=== PATIENT | female | born 1995 | race Caucasian/White ===

== ENCOUNTER → 2022-07-15 15:28 | Outpatient (CLI) | payer BC, SELFPAY ==
--- NOTE | 2022-07-15 15:30 | DI.US.S_ITS ---
PROCEDURE: US OB <= 14 WEEKS FETUS INDICATIONS: DATES OUTSIDE/PRIOR DATING DATA: Last menstrual period (LMP): Unknown. LMP-based estimated date of delivery (REJI): Not applicable First dating scan (date and location): 07/15/2022. Estimated date of delivery (REJI) from first dating scan: 02/28/2023. TECHNIQUE: Real-time scanning was performed of the fetus and maternal pelvic organs, with image documentation. Endovaginal scanning was also performed to better visualize the fetus and maternal ovaries. COMPARISON: None. FINDINGS: A single living intrauterine gestation is present, with a heart rate of 153 beats per minute. [place]-rump length is 13 mm, corresponding to a 7 week 3 day gestation. Maternal organs: Right ovary is not seen. Left ovary measures 23 mm and demonstrates a corpus luteal cyst. IMPRESSION: Single living intrauterine gestation. We strive to produce accurate, complete, and clear reports of imaging services. To assist us in improving patient care, this report was composed using standard report templates and voice recognition software. Therefore, it may contain abnormal punctuation, insertions and/or omissions. Occasional wrong-word or sound-alike substitutions may occur. Though we review the report and make efforts to correct it, we do recommend that the report be read carefully in proper context to recognize any text inaccuracies. Dictated by: Marylin Tate M.D. on 07/15/2022 at 16:45 Transcribed by: JOSHUA on 07/15/2022 at 16:46 Approved by: Marylin Tate M.D. on 07/15/2022 at 16:58
== END ==
PROVIDERS: Referring Provider Obstetrics & Gynecology; Visit Provider Obstetrics & Gynecology
DX: Z36.87 Encounter for antenatal screening for uncertain dates (principal); Z3A.01 Less than 8 weeks gestation of pregnancy
CPT/HCPCS: 76801; 76817

== ENCOUNTER → 2022-08-19 15:35 | Outpatient (CLI) | payer BC, SELFPAY ==
[2022-08-19 16:23] LABS: Add Manual Diff / Slide Review NO; Basophils Absolute Auto 100 /uL (0-100); Basophils Percent Auto 0.6 % (0-2); Eosinophils Absolute Auto 100 /uL (0-450); Eosinophils Percent Auto 0.7 % (2-4); Hematocrit 35.4 % (36-46); Hemoglobin 12.3 g/dL (12.0-16.0); Lymphocytes Absolute Auto 2000 /uL (1100-4500); Lymphocytes Percent Auto 19.1 % (25-40); Mean Corpuscular HGB Conc 34.9 % (30-36); Mean Corpuscular Volume 88.9 fL (80-100); Monocytes Absolute Auto 600 /uL (0-900); Monocytes Percent Auto 5.6 % (3-14); Neutrophils Absolute Auto 7600 /uL (1500-7000); Platelet Count 240 X10^3/uL (150-400); Red Blood Cell Count 3.98 X10^6/uL (4.0-5.2); Red Cell Distribution Width 12.6 % (11.6-14.8); White Blood Cell Count 10.3 X10^3/uL (4.5-11.0)
[2022-08-19 16:58] LABS: Alanine Aminotransferase 17 IU/L (<35); Albumin 4.3 g/dL (3.5-5.0); Albumin Globulin Ratio 1.3 (1.0-2.8); Alkaline Phosphatase 63 U/L (38-126); Aspartate Aminotransferase 21 IU/L (14-36); BUN Creatinine Ratio 16.2 (6-22); Bilirubin Total 0.2 mg/dL (0.2-1.3); Blood Urea Nitrogen 11 mg/dL (7-17); Calcium 9.7 mg/dL (8.4-10.2); Carbon Dioxide 23 mmol/L (22-32); Chloride 99 mmol/L (98-107); Estimated Glomerular Filt Rate > 60 mL/min (>60); Globulin 3.2 g/dL (1.7-4.1); Glucose 87 mg/dL (70-100); HEMOLYSIS < 15 (0-50); Sodium 134 mmol/L (137-145); Total Protein 7.5 g/dL (6.3-8.2)
[2022-08-19 17:58] LABS: Hepatitis B Surface Antigen NEGATIVE s/c (NEGATIVE)
[2022-08-19 18:07] LABS: HIV 1 & 2 Ab/Ag 4th Gen Combo NEGATIVE (NEGATIVE); Hep C Virus Ab w/Reflex Quant NEGATIVE s/c (NEGATIVE)
[2022-08-20 08:36] LABS: Varicella IgG Antibody 1595 index (Immune >165)
[2022-08-21 07:19] LABS: RPR Screen Non Reactive (Non Reactive)
[2022-08-22 14:13] LABS: Levetiracetam Keppra 7.8 ug/mL (10.0-40.0)
== END ==
PROVIDERS: Referring Provider Obstetrics & Gynecology; Visit Provider Obstetrics & Gynecology
DX: Z34.00 Encounter for supervision of normal first pregnancy, unspecified trimester (principal); G40.309 Generalized idiopathic epilepsy and epileptic syndromes, not intractable, without status epilepticus
CPT/HCPCS: 36415; 80053; 80055; 80177; 86787; 86803; 86850; 86900; 86901; 87389

== ENCOUNTER → 2022-09-17 15:02 | Outpatient (CLI) | payer BC, SELFPAY ==
[2022-09-17 19:01] LABS: Urine N gonorrhoeae NOT DETECTED
[2022-09-17 19:02] LABS: Urine Chlamydia NOT DETECTED
== END ==
PROVIDERS: Visit Provider Obstetrics & Gynecology
DX: Z11.3 Encounter for screening for infections with a predominantly sexual mode of transmission (principal); Z34.02 Encounter for supervision of normal first pregnancy, second trimester; Z3A.16 16 weeks gestation of pregnancy
CPT/HCPCS: 87086; 87491; 87591

== ENCOUNTER → 2022-09-17 15:47 | Outpatient (CLI) | payer BC, SELFPAY ==
[2022-09-19 19:07] LABS: Estriol, Free 0.96 ng/mL (.); Inhibin A, Dimeric 364.98 pg/mL (.); Inhibin A, MoM 2.47 (.); Maternal Ethnicity Caucasian (.); Maternal Weight 157 lbs (.); Number of Fetuses No (.); OSBR Risk 1 IN 8371 (.); Results Report (.); Test Results *Screen Negative* (.); hCG, MoM 2.98 (.); hCG, Serum 105318 mIU/mL (.)
[2022-09-20 08:44] LABS: Levetiracetam Keppra 7.3 ug/mL (10.0-40.0)
== END ==
PROVIDERS: Psychiatry & Neurology Neurology; Referring Provider Obstetrics & Gynecology; Visit Provider Obstetrics & Gynecology
DX: G40.409 Other generalized epilepsy and epileptic syndromes, not intractable, without status epilepticus; Z11.3 Encounter for screening for infections with a predominantly sexual mode of transmission; Z3A.16 16 weeks gestation of pregnancy; O99.352 Diseases of the nervous system complicating pregnancy, second trimester
CPT/HCPCS: 36415; 80177; 82105; 82677; 84702; 86336; 87086; 87491; 87591

== ENCOUNTER → 2022-10-13 15:11 | Outpatient (CLI) | payer BC, SELFPAY ==
--- NOTE | 2022-10-13 15:11 | DI.US.S_ITS ---
PROCEDURE: US OB >= 14 WEEKS FETUS INDICATIONS: ANATOMY OUTSIDE/PRIOR DATING DATA: Last menstrual period (LMP): Unknown. First dating scan (date and location): 07/15/2022. Estimated date of delivery (REJI) from first dating scan: 02/28/2023. TECHNIQUE: Real-time scanning was performed of the fetus, with image documentation and biometric measurements. Endovaginal scanning: Not performed COMPARISON: [facility], OB <= 14 WEEKS FETUS, 07/15/2022, 15:39. FINDINGS: General: A single living intrauterine gestation is present. Presentation: Vertex. Placenta: Placental position is anterior , without previa. Amniotic fluid index: 13.6 cm, normal range is 5-24 cm. Single deepest vertical pocket is 3.6 cm. heart rate: 155 beats per minute. Maternal cervical canal: 3.4 cm long. Normal lower limit is 2.5 cm. biometrics: Biparietal diameter: 4.9 cm, 20 weeks 6 days Head circumference: 18.1 cm, 20 weeks 3 days Abdominal circumference: 15.2 cm, 20 weeks 3 days Femur length: 3.3 cm, 20 weeks 2 days estimated gestational age: 20 weeks 2 days Composite gestational age from present scan: 20 weeks 4 days Estimated weight and percentile: 350 g, 51st percentile Anatomic survey: Neuro: Ventricles are non-dilated at less than 10 mm. Cisterna magna is normal at 3-11 mm. Cerebellum is normal in size and morphology. Nuchal skin fold: Normal at less than 6 mm between 14-21 weeks gestational age. Face: Nose and lips, facial profile are normal. Spine: No evidence for spina bifida. Heart: 4-chambered heart is present, with normal ventricular outflow tracts. Diaphragm: Diaphragm is intact. Stomach: Left-sided stomach is present. Kidneys: No hydronephrosis. Normal is less than 5 mm in 2nd trimester, less than 7 mm in 3rd trimester. Cord: 3-vessel cord has orthotopic insertion. Bladder: Normal in size. Extremities: All 4 extremities identified. IMPRESSION: 1. Single living intrauterine . 2. Normal 2nd trimester anatomy survey. No anatomic anomalies detected at this time. We strive to produce accurate, complete, and clear reports of imaging services. To assist us in improving patient care, this report was composed using standard report templates and voice recognition software. Therefore, it may contain abnormal punctuation, insertions and/or omissions. Occasional wrong-word or sound-alike substitutions may occur. Though we review the report and make efforts to correct it, we do recommend that the report be read carefully in proper context to recognize any text inaccuracies. Dictated by: Ash Quiroz M.D. on 10/14/2022 at 8:34 Approved by: Ash Quiroz M.D. on 10/14/2022 at 8:44
== END ==
PROVIDERS: Referring Provider Obstetrics & Gynecology; Visit Provider Obstetrics & Gynecology
DX: Z34.02 Encounter for supervision of normal first pregnancy, second trimester (principal); Z3A.20 20 weeks gestation of pregnancy
CPT/HCPCS: 76811

== ENCOUNTER → 2022-11-12 14:10 | Outpatient (CLI) | payer BC, SELFPAY ==
[2022-11-15 11:21] LABS: Levetiracetam Keppra 7.1 ug/mL (10.0-40.0)
== END ==
PROVIDERS: Referring Provider Psychiatry & Neurology Neurology; Visit Provider Psychiatry & Neurology Neurology
DX: G40.309 Generalized idiopathic epilepsy and epileptic syndromes, not intractable, without status epilepticus (principal)
CPT/HCPCS: 36415; 80177

== ENCOUNTER → 2022-11-26 13:51 | Outpatient (CLI) | payer BC, SELFPAY ==
[2022-11-26 15:50] LABS: Hematocrit 30.7 % (36-46); Hemoglobin 10.4 g/dL (12.0-16.0)
[2022-11-26 16:06] LABS: GTT (PREG) 1 Hour PP 50gm Dose 142 mg/dL (76-139)
== END ==
PROVIDERS: Referring Provider Obstetrics & Gynecology; Visit Provider Obstetrics & Gynecology
DX: Z34.82 Encounter for supervision of other normal pregnancy, second trimester (principal); Z3A.20 20 weeks gestation of pregnancy
CPT/HCPCS: 36415; 82950; 85014; 85018

== ENCOUNTER → 2022-11-28 07:51 | Outpatient (CLI) | payer BC, SELFPAY ==
[2022-11-28 08:36] LABS: Glucose Fasting Gestational 76 mg/dL (76-95)
[2022-11-28 10:12] LABS: Glucose 1 Hour Gest 145 mg/dL (76-180)
[2022-11-28 11:00] LABS: Glucose 2 Hour Gest 103 mg/dL (76-155)
[2022-11-28 11:22] LABS: Glucose Tol Interp,Gestational INTERPRETATION
[2022-11-28 13:03] LABS: Glucose 3 Hour Gest 102 mg/dL (76-140)
== END ==
PROVIDERS: Referring Provider Obstetrics & Gynecology; Visit Provider Obstetrics & Gynecology
DX: R73.09 Other abnormal glucose (principal); Z3A.24 24 weeks gestation of pregnancy
CPT/HCPCS: 36415; 82951; 82952

== ENCOUNTER → 2023-01-08 08:45 | Outpatient (CLI) | payer BC, SELFPAY ==
[2023-01-12 13:41] LABS: Levetiracetam Keppra 20.9 ug/mL (10.0-40.0)
== END ==
PROVIDERS: Referring Provider Psychiatry & Neurology Neurology; Visit Provider Psychiatry & Neurology Neurology
DX: G40.309 Generalized idiopathic epilepsy and epileptic syndromes, not intractable, without status epilepticus (principal)
CPT/HCPCS: 36415; 80177

== ENCOUNTER → 2023-02-04 08:47 | Outpatient (CLI) | payer BC, SELFPAY ==
[2023-02-05 13:28] LABS: Strep Grp B PCR NEG for Grp B Strep
== END ==
PROVIDERS: Visit Provider Obstetrics & Gynecology
DX: Z34.03 Encounter for supervision of normal first pregnancy, third trimester (principal); Z3A.36 36 weeks gestation of pregnancy
CPT/HCPCS: 87653

== ENCOUNTER → 2023-02-11 08:54 | Outpatient (CLI) | payer BC, SELFPAY ==
[2023-02-11 09:20] LABS: Add Manual Diff / Slide Review NO; Basophils Absolute Auto 100 /uL (0-100); Basophils Percent Auto 0.7 % (0-2); Eosinophils Absolute Auto 100 /uL (0-450); Eosinophils Percent Auto 0.6 % (2-4); Hematocrit 34.7 % (36-46); Lymphocytes Absolute Auto 1400 /uL (1100-4500); Lymphocytes Percent Auto 13.6 % (25-40); Mean Corpuscular HGB Conc 34.6 % (30-36); Mean Corpuscular Hemoglobin 31.4 PG (26-34); Mean Corpuscular Volume 90.6 fL (80-100); Monocytes Absolute Auto 600 /uL (0-900); Monocytes Percent Auto 5.6 % (3-14); Neutrophils Absolute Auto 8300 /uL (1500-7000); Neutrophils Percent Auto 79.5 % (50-75); Platelet Count 184 X10^3/uL (150-400); Red Blood Cell Count 3.83 X10^6/uL (4.0-5.2); Red Cell Distribution Width 13.6 % (11.6-14.8); White Blood Cell Count 10.5 X10^3/uL (4.5-11.0)
[2023-02-11 09:36] LABS: Alanine Aminotransferase 25 IU/L (<35); Albumin 3.3 g/dL (3.5-5.0); Albumin Globulin Ratio 1.1 (1.0-2.8); Alkaline Phosphatase 941 U/L (38-126); Aspartate Aminotransferase 30 IU/L (14-36); BUN Creatinine Ratio 12.5 (6-22); Bilirubin Total 0.2 mg/dL (0.2-1.3); Blood Urea Nitrogen 8 mg/dL (7-17); Calcium 9.5 mg/dL (8.4-10.2); Carbon Dioxide 26 mmol/L (22-32); Chloride 103 mmol/L (98-107); Estimated Glomerular Filt Rate > 60 mL/min (>60); Globulin 3.1 g/dL (1.7-4.1); Glucose 85 mg/dL (70-100); HEMOLYSIS < 15 (0-50); Sodium 134 mmol/L (137-145); Total Protein 6.4 g/dL (6.3-8.2)
== END ==
PROVIDERS: Referring Provider Obstetrics & Gynecology; Visit Provider Obstetrics & Gynecology
DX: O16.3 Unspecified maternal hypertension, third trimester (principal); Z3A.37 37 weeks gestation of pregnancy
CPT/HCPCS: 36415; 80053; 82570; 84156; 85025

== ENCOUNTER → 2023-02-11 08:54 | Outpatient (CLI) | payer BC, SELFPAY ==
[2023-02-11 15:02] LABS: Creatinine Urine Random 21.8 mg/dL; Protein (Total) Urine Random 13 mg/dL (0-12); Protein Creatinine Ratio Urine 0.59 GRAM/24H
== END ==
PROVIDERS: Visit Provider Obstetrics & Gynecology
DX: Z34.03 Encounter for supervision of normal first pregnancy, third trimester (principal); Z3A.37 37 weeks gestation of pregnancy
CPT/HCPCS: 82570; 84156

== ENCOUNTER → 2023-02-16 07:11 | Outpatient (CLI) | payer BC, SELFPAY ==
[2023-02-16 07:46] LABS: Add Manual Diff / Slide Review NO; Basophils Absolute Auto 0 /uL (0-100); Basophils Percent Auto 0.4 % (0-2); Eosinophils Absolute Auto 100 /uL (0-450); Eosinophils Percent Auto 0.7 % (2-4); Hemoglobin 12.5 g/dL (12.0-16.0); Lymphocytes Absolute Auto 1500 /uL (1100-4500); Mean Corpuscular HGB Conc 33.8 % (30-36); Mean Corpuscular Hemoglobin 31.2 PG (26-34); Mean Corpuscular Volume 92.5 fL (80-100); Monocytes Absolute Auto 500 /uL (0-900); Monocytes Percent Auto 4.2 % (3-14); Neutrophils Absolute Auto 8700 /uL (1500-7000); Neutrophils Percent Auto 80.7 % (50-75); Platelet Count 188 X10^3/uL (150-400); Red Cell Distribution Width 13.9 % (11.6-14.8); White Blood Cell Count 10.8 X10^3/uL (4.5-11.0)
[2023-02-16 08:17] LABS: Alanine Aminotransferase 23 IU/L (<35); Albumin 3.3 g/dL (3.5-5.0); Albumin Globulin Ratio 1.2 (1.0-2.8); Alkaline Phosphatase 1065 U/L (38-126); Aspartate Aminotransferase 30 IU/L (14-36); BUN Creatinine Ratio 13.6 (6-22); Bilirubin Total 0.2 mg/dL (0.2-1.3); Blood Urea Nitrogen 9 mg/dL (7-17); Calcium 9.3 mg/dL (8.4-10.2); Carbon Dioxide 22 mmol/L (22-32); Chloride 103 mmol/L (98-107); Estimated Glomerular Filt Rate > 60 mL/min (>60); Globulin 2.8 g/dL (1.7-4.1); Glucose 141 mg/dL (70-100); HEMOLYSIS < 15 (0-50); Potassium 3.8 mmol/L (3.4-5.1); Sodium 133 mmol/L (137-145); Total Protein 6.1 g/dL (6.3-8.2)
[2023-02-16 08:29] LABS: Creatinine Urine Random 16.7 mg/dL; Protein (Total) Urine Random 14 mg/dL (0-12); Protein Creatinine Ratio Urine 0.83 GRAM/24H
== END ==
PROVIDERS: Referring Provider Obstetrics & Gynecology; Visit Provider Obstetrics & Gynecology
DX: O16.3 Unspecified maternal hypertension, third trimester (principal)
CPT/HCPCS: 36415; 80053; 82570; 84156; 85025

== ENCOUNTER 2023-02-24 16:04 | Inpatient (IN) | payer BC, SELFPAY ==
[2023-02-24 16:52] VITALS: BP 139/90
[2023-02-24 17:48] LABS: Add Manual Diff / Slide Review NO; Basophils Absolute Auto 100 /uL (0-100); Basophils Percent Auto 0.5 % (0-2); Eosinophils Absolute Auto 100 /uL (0-450); Eosinophils Percent Auto 0.7 % (2-4); Hematocrit 37.3 % (36-46); Hemoglobin 12.7 g/dL (12.0-16.0); Lymphocytes Absolute Auto 1800 /uL (1100-4500); Lymphocytes Percent Auto 14.1 % (25-40); Mean Corpuscular Hemoglobin 30.7 PG (26-34); Mean Corpuscular Volume 90.3 fL (80-100); Monocytes Absolute Auto 700 /uL (0-900); Monocytes Percent Auto 5.2 % (3-14); Neutrophils Absolute Auto 10300 /uL (1500-7000); Neutrophils Percent Auto 79.5 % (50-75); Platelet Count 201 X10^3/uL (150-400); Red Blood Cell Count 4.13 X10^6/uL (4.0-5.2); Red Cell Distribution Width 13.6 % (11.6-14.8)
[2023-02-24 18:46] LABS: Add Manual Diff / Slide Review NO; Basophils Absolute Auto 100 /uL (0-100); Basophils Percent Auto 0.6 % (0-2); Eosinophils Absolute Auto 100 /uL (0-450); Eosinophils Percent Auto 0.8 % (2-4); Hematocrit 39.3 % (36-46); Hemoglobin 13.4 g/dL (12.0-16.0); Lymphocytes Absolute Auto 1900 /uL (1100-4500); Lymphocytes Percent Auto 14.4 % (25-40); Mean Corpuscular HGB Conc 34.2 % (30-36); Mean Corpuscular Hemoglobin 30.8 PG (26-34); Mean Corpuscular Volume 90.3 fL (80-100); Monocytes Absolute Auto 600 /uL (0-900); Monocytes Percent Auto 4.4 % (3-14); Neutrophils Absolute Auto 10700 /uL (1500-7000); Neutrophils Percent Auto 79.8 % (50-75); Platelet Count 202 X10^3/uL (150-400); Red Blood Cell Count 4.35 X10^6/uL (4.0-5.2); Red Cell Distribution Width 13.7 % (11.6-14.8); White Blood Cell Count 13.4 X10^3/uL (4.5-11.0)
[2023-02-24 18:51] LABS: Aspartate Aminotransferase 44 IU/L (14-36); BUN Creatinine Ratio 13.8 (6-22); Blood Urea Nitrogen 8 mg/dL (7-17); Estimated Glomerular Filt Rate > 60 mL/min (>60); Uric Acid 5.5 mg/dL (2.5-6.2)
--- NOTE | 2023-02-24 19:54 | PM.OBHP.1 ---
OB HPI Date/Time Date of admission: 02/24/23 Date Patient Seen: 02/24/23 Time Patient Seen: 19:55 History of Present Condition Chief complaint: OBS OF LABOR : 1 Para: 0 Estimated Date of Delivery: 02/28/23 Estimated Gestational Age (weeks): 39.3 Narrative: Carmelo Blackwood is a 27 year old female at 39 weeks 3 days by early ultrasound. She is here after confirmation of PROM; reports fluid began leaking approx 1400. Carmelo has a history of seizure disorder, currently well controlled on Keppra 750 mg BID with 1000 mg folic acid BID; has not had a seizure in over 8 years. She also has a history of orthostatic hypotension. She is here with her , Alber. They are excited to meet their baby, Kapil. After reviewing options, Carmelo prefers expectant management of labor and declines a cervical exam at this time. Carmelo feels good today and denies headache, visual changes, epigastric pain. History of Present care: good care, initiated at week # (12), number of visits (10) and pounds weight gain (36) Dating criteria: based on 1st trimester US only Ultrasounds: normal 1st trimester US and normal mid trimester US [facility] Medical History (Updated 02/18/23 @ 10:01 by Frank Stinson MD) Chicken pox (~1996) Hemorrhoid (~2019) Hypotension Surgical History (Updated 09/16/22 @ 21:14 by Blanka Keen) Anesthesia [place] teeth extracted (~01/2014) Family History (Updated 09/16/22 @ 21:15 by Blanka Keen) Mother Skin cancer Father Hyperlipidemia Family/Other Skin cancer Grandmother Lung cancer Social History marital status: number of children: 0 household members: spouse lives independently: Yes caregiver/support person: No housing: condominium pets and animals: Yes (1 cat & 1 dog; aware of toxo precautions) education level: college (june's degree) occupational status: employed ([employer]) current occupational exposures/hazards: No special kaleb needs: No travel history: recent (domestic move only) seatbelt use: always water heater temp set < 120 deg: Yes working smoke detector in home: Yes fire extinguisher in home: Yes carbon monox detector in home: Yes firearms in home: Yes firearms unloaded and locked: No do you feel safe at home: Yes Smoking Status: Never smoker second hand exposure: No alcohol intake: former (rarely when not ) substance use type: does not use during the past year weight has: remained stable well-balanced diet: daily or most days daily servings fruits/ve-4 caffeine: No Type(s) of exercise: walking Meds Home Medications and Allergies Home Medications Medication Instructions Recorded Confirmed Type [id number] 400 mcg-om3 35 mg-dha 25 1 tab PO DAILY 07/18/22 02/24/23 History mg-epa 5 mg-fish oil chewable tablet folic acid 1 mg tablet 4 mg PO DAILY 07/18/22 02/24/23 History levetiracetam 500 mg tablet 750 mg PO BID 12/10/22 02/24/23 History (Keppra) Allergies Allergy/AdvReac Type Severity Reaction Status Date / Time No Known Drug Allergies Allergy Unverified 02/18/23 09:27 Objective Labs 02/24/23 17:15 02/24/23 17:15 Labs: Laboratory Results - last 24 hr 02/24/23 02/24/23 02/24/23 16:46 16:46 17:15 WBC 13.0 H 13.4 H RBC 4.13 4.35 Hgb 12.7 13.4 Hct 37.3 39.3 MCV 90.3 90.3 MCH 30.7 30.8 MCHC 34.0 34.2 RDW 13.6 13.7 Plt Count 201 202 Neut % (Auto) 79.5 H 79.8 H Lymph % (Auto) 14.1 L 14.4 L [place] % (Auto) 5.2 4.4 Eos % (Auto) 0.7 L 0.8 L Baso % (Auto) 0.5 0.6 Neut # (Auto) 36051 H 39485 H Lymph # (Auto) 1800 1900 [place] # (Auto) 700 600 Eos # (Auto) 100 100 Baso # (Auto) 100 100 BUN Creatinine Estimated GFR BUN/Creatinine Ratio Uric Acid AST Blood Type O Positive Antibody Screen Negative 02/24/23 17:15 WBC RBC Hgb Hct MCV MCH MCHC RDW Plt Count Neut % (Auto) Lymph % (Auto) [place] % (Auto) Eos % (Auto) Baso % (Auto) Neut # (Auto) Lymph # (Auto) [place] # (Auto) Eos # (Auto) Baso # (Auto) BUN 8 Creatinine 0.58 Estimated GFR > 60 BUN/Creatinine Ratio 13.8 Uric Acid 5.5 AST 44 H Blood Type Antibody Screen
[2023-02-24 20:33] LABS: Creatinine Urine Random 88.9 mg/dL; Protein (Total) Urine Random 15 mg/dL (0-12); Protein Creatinine Ratio Urine 0.16 GRAM/24H
[2023-02-24] MEDS: levETIRAcetam 250 MG TABLET 750 MG PO (20:41)
[2023-02-24] MEDS: FOLIC ACID 1 MG TABLET PO (20:42)
--- NOTE | 2023-02-24 20:57 | P.HPOB_ITS ---
OB HPI Date/Time Date of admission: 02/24/23 Date Patient Seen: 02/24/23 Time Patient Seen: 18:00 History of Present Condition Chief complaint: OBS OF LABOR REJI Calculator Estimated Delivery Date Method Current WG Current Estimate 02/28/23 Ultrasound #1 39w 3d Other Estimates 02/10/23 LMP (Uncertain) 42w 0d Estimated Gestational Age (weeks): 39w3d : 1 Para: 0 Narrative: Carmelo Blackwood is a 27 year old female at 39 weeks 3 days by early ultrasound. She is here after confirmation of PROM; reports fluid began leaking approx 1400. Carmelo has a history of seizure disorder, currently well controlled on Keppra 750 mg BID with 1000 mg folic acid BID; has not had a seizure in over 8 years. She also has a history of orthostatic hypotension. She is here with her , Alber. They are excited to meet their baby, Kapil. After reviewing options, Carmelo prefers expectant management of labor and declines a cervical exam at this time. Carmelo feels good today and denies headache, visual changes, epigastric pain. care: good care, initiated at week # (10), number of visits (10) and pounds weight gain (36) Dating criteria OB: based on 1st trimester US only Ultrasounds: normal 1st trimester US and normal mid trimester US Obstetrical complications: none Medical complications OB: neurological (History of seizures (none during p regnancy)) Preadmission Labs Last OB Lab Results: Blood Type O Positive 02/24/23 16:46 Antibody Screen Negative 02/24/23 16:46 Hematocrit 39.3 % (36-46) 02/24/23 17:15 Hemoglobin 13.4 g/dL (12.0-16.0) 02/24/23 17:15 Hepatitis B Surface Antigen Negative s/c (NEGATIVE) 08/19/22 15 :43 Hepatitis C Antibody Negative s/c (NEGATIVE) 08/19/22 15:43 Rubella Antibody 169.0 IU/mL (>15) 08/19/22 15:43 Varicella-Zoster IgG Antibody 1595 index (Immune >165) 08/19/22 15:43 Glucose 1 Hour 142 mg/dL (76-139) H 11/26/22 13:55 Group B Streptococcus (PCR) Neg for grp b strep 02/04/23 08:47 Evaluation Evaluation Baseline heart rate: 125 Variability: Moderate (11-25) monitor accelerations: Present Monitor Decelerations: Absent Contraction Frequency (minutes): 2 Uterine Contraction Intensity: Mild Status: Category l Comments: Exam not performed r/to PROM. [facility] Medical History (Updated 02/18/23 @ 10:01 by Frank Stinson MD) Chicken pox (~1996) Hemorrhoid (~2019) Hypotension Surgical History (Updated 09/16/22 @ 21:14 by Blanka Keen) Anesthesia [place] teeth extracted (~01/2014) Family History (Updated 09/16/22 @ 21:15 by Blanka Keen) Mother Skin cancer Father Hyperlipidemia Family/Other Skin cancer Grandmother Lung cancer Social History marital status: number of children: 0 household members: spouse lives independently: Yes caregiver/support person: No housing: condominium pets and animals: Yes (1 cat & 1 dog; aware of toxo precautions) education level: college (june's degree) occupational status: employed ([employer]) current occupational exposures/hazards: No special kaleb needs: No travel history: recent (domestic move only) seatbelt use: always water heater temp set < 120 deg: Yes working smoke detector in home: Yes fire extinguisher in home: Yes carbon monox detector in home: Yes firearms in home: Yes firearms unloaded and locked: No do you feel safe at home: Yes Smoking Status: Never smoker second hand exposure: No alcohol intake: former (rarely when not ) substance use type: does not use during the past year weight has: remained stable well-balanced diet: daily or most days daily servings fruits/ve-4 caffeine: No Type(s) of exercise: walking Meds Home Medications and Allergies Home Medications Medication Instructions Recorded Confirmed Type [id number] 400 mcg-om3 35 mg-dha 25 1 tab PO DAILY 07/18/22 02/24/23 History mg-epa 5 mg-fish oil chewable tablet folic acid 1 mg tablet 4 mg PO DAILY 07/18/22 02/24/23 History levetiracetam 500 mg tablet 750 mg PO BID 12/10/22 02/24/23 History (Emily) Allergies Allergy/AdvReac Type Severity Reaction Status Date / Time No Known Drug Allergies Allergy Unverified 02/18/23 09:27 Review of Systems Review of Systems Narrative: Negative except as mentioned in HPI. OB Exam Vital signs Blood Pressure: 136/90 Pulse Rate: 111 Respiratory Rate: 16 Temperature: 36.6 F Presentation: vertex Estimated Weight (lbs): 7 Other: Vertex presentation confirmed by bedside ultrasound. Objective Labs 02/24/23 17:15 02/24/23 17:15 Labs: Laboratory Results - last 24 hr 02/24/23 02/24/23 02/24/23 16:46 16:46 17:15 WBC 13.0 H 13.4 H RBC 4.13 4.35 Hgb 12.7 13.4 Hct 37.3 39.3 MCV 90.3 90.3 MCH 30.7 30.8 MCHC 34.0 34.2 RDW 13.6 13.7 Plt Count 201 202 Neut % (Auto) 79.5 H 79.8 H Lymph % (Auto) 14.1 L 14.4 L [place] % (Auto) 5.2 4.4 Eos % (Auto) 0.7 L 0.8 L Baso % (Auto) 0.5 0.6 Neut # (Auto) 77555 H 92213 H Lymph # (Auto) 1800 1900 [place] # (Auto) 700 600 Eos # (Auto) 100 100 Baso # (Auto) 100 100 BUN Creatinine Estimated GFR BUN/Creatinine Ratio Uric Acid AST U Random Total Protein Urine Creatinine Protein/Creatinin Ratio Blood Type O Positive Antibody Screen Negative 02/24/23 02/24/23 17:15 17:40 WBC RBC Hgb Hct MCV MCH MCHC RDW Plt Count Neut % (Auto) Lymph % (Auto) [place] % (Auto) Eos % (Auto) Baso % (Auto) Neut # (Auto) Lymph # (Auto) [place] # (Auto) Eos # (Auto) Baso # (Auto) BUN 8 Creatinine 0.58 Estimated GFR > 60 BUN/Creatinine Ratio 13.8 Uric Acid 5.5 AST 44 H U Random Total Protein 15 H Urine Creatinine 88.9 Protein/Creatinin Ratio 0.16 Blood Type Antibody Screen Assessment and Plan Assessment and Plan Assessment and Plan narrative: at 39w3d by 1st trimester ultrasound GBS negative Rh positive PROM, clear fluid per amnisure FHR Cat 1 Admit to L&D PIH panel r/to elevated BP on admission Review options including cervical ripening, pitocin augmentation, expectant management including risks, benefits or each. Discuss benefits and risks of cervical exams now and later. Intermittent monitoring appropriate if PIH panel WNL. Anticipate .
[2023-02-24 21:01] VITALS: BP 136/90; PULSE 111; RESP 16; TEMP 2.6; TEMP 36.6
[2023-02-24] MEDS: FENT 2MCG/ML BUPIV 0.1% EPI 200 MCG/100 ML PLAST..BAG 10 MCG EPIDURAL (23:00)
--- NOTE | 2023-02-24 23:59 | PM.OBPNLAB ---
Date/Time Date Patient Seen: 02/24/23 Time Patient Seen: 23:40 Pain Control Pain control: other (epidural requested) Comments: CNM assumed care at 9pm, patient was sitting up on the ball comfortable but stated contractions had progressed since admission. Contractions have steadily increased in frequency and intensity, now rated at 7/10 and epidural requested. Declines CE until after epidural is placed. Continues to leak clear fluid. VS: BP 133/74mmHg, HR 80bpm, T 36.3C Temporal Pelvic Exam Comments: CE deferred, will check after epidural placement. Contractions Monitor mode: External Pitocin rate (mU/min): 0 Contraction frequency (min): 2 Contraction duration (min): 1 Contraction pattern: Regular Contraction intensity: Moderate Status status: Category l Heart Rate Baseline: 140 Comments: FHR has been reassuring by intermittent auscultation. Switch to continuous EFM at time of epidural request. Assessment and Plan Assessment: active labor Plan: continuous present management Comments: Continue expectant management of PROM. CE after epidural placement, then Q4 hours or sooner, PRN.
[2023-02-25] MEDS: LACTATED RINGERS 1,000 ML 100 ML IV (00:14)
--- NOTE | 2023-02-25 01:18 | P.PCN_ITS ---
Regional Block Pre-procedure Procedure: Continuous Lumbar Epidural for L&D Hx: No personal or family history of anesthesia problems. Exam narrative: Hx of seizures, on Keppra BID, no seizures in last 8 years. No further medical history, other than care. ASA Class: II Labs: Hct 39.3 % (36-46) 02/24/23 17:15 Plt Count 202 X10^3/uL (150-400) 02/24/23 17:15 Medications: Current Medications Generic Name Dose Route Start Last Admin Trade Name Freq PRN Reason Stop Dose Admin Carboprost Tromethamine 250 mcg 02/24/23 16:43 Carboprost 250 Mcg/Ml Ampul IM Q90M PRN Bleeding Diphenhydramine HCl 25 mg 02/25/23 00:08 Diphenhydramine 50 Mg/Ml Vial IV Q10M PRN Pruritis Ephedrine Sulfate 10 mg 02/25/23 00:08 Ephedrine 50 Mg/Ml Vial IV Q5M PRN Blood pressure decrease more than 20% of baseline. Folic Acid 1 mg 02/24/23 21:00 02/24/23 20:42 Folic Acid 1 Mg Tablet PO 1 mg BID SUE Administration Oxytocin/Lactated Ringer's 30 unit in 500 mls @ 200 mls/hr 02/24/23 16:43 Oxytocin Premix IV CONT PRN Bleeding Protocol Tranexamic Acid 1,000 mg/ 100 mls @ 200 mls/hr 02/24/23 16:43 Sodium Chloride IV NOW PRN Bleeding Lactated Ringer's 1,000 mls @ 100 mls/hr 02/24/23 16:45 02/25/23 00:14 Lactated Ringers IV 100 mls/hr CONT SUE Administration FENT 2MCG/ML BUPIV 0.1% EPI 200 mcg in 100 mls @ 10 mls/hr 02/25/23 00:15 Fentanyl/Bupiv/Ns 2mcg/Ml - 0.1% EPIDURAL CONT SUE Levetiracetam 750 mg 02/24/23 21:00 02/24/23 20:41 Levetiracetam 250 Mg Tablet PO 750 mg BID SUE Administration Lidocaine HCl 20 ml 02/24/23 16:43 Lidocaine 1% 20 Ml INJ INTRA-OP PRN Post Delivery Methylergonovine Maleate 0.2 mg 02/24/23 16:43 Methylergonovine 0.2 Mg Tablet PO Q6HR PRN Heavy Bleeding Methylergonovine Maleate 0.2 mg 02/24/23 16:43 Methylergonovine 0.2 Mg/Ml Vial IM NOW PRN Bleeding Misoprostol 800 mcg 02/24/23 16:43 Misoprostol 200 Mcg Tablet FL NOW PRN Bleeding Misoprostol 400 mcg 02/24/23 16:43 Misoprostol 200 Mcg Tablet SL NOW PRN Bleeding Nalbuphine HCl 2.5 mg 02/25/23 00:08 Nalbuphine 20 Mg/Ml Ampul IV Q10M PRN Pruritis Naloxone HCl 0.2 mg 02/24/23 16:43 Naloxone 0.4 Mg/Ml Vial IV Q2MIN PRN Opiate Reversal Oxytocin 10 unit 02/24/23 16:43 Oxytocin 10 Unit/Ml Vial IM NOW PRN Bleeding Allergies: Allergies Allergy/AdvReac Type Severity Reaction Status Date / Time No Known Drug Allergies Allergy Unverified 02/18/23 09:27 Procedure Insertion date: 02/25/23 Insertion time: 00:48 Prep/Local: 1% lidocaine (Chlorprep) Interspace: L3-L4 Patient position: sitting Needle: 18 gauge Josefina Loss of resistance with: saline (with air bubble) JELANI at (cm): 5 Catheter placed at SKIN (cm): 11 Catheter in SPACE (cm): 6 Insertion: No CSF, No Blood, No Paresthesia with insertion, No Paresthesia with injection and No Test dose reaction Initial Medications TEST DOSE time: 00:53 BOLUS DOSE time: 01:00 BOLUS DOSE (mL): 6 BOLUS DOSE med: other (0.1% bupivacaine with 2mcg/mL fentanyl) Infusion INFUSION: 0.125% bupivacaine (0.1% bupivacaine with 2mcg/mL fentanyl) and with fentanyl 2 mcg/mL Initial rate (mL/hr): 12 Subsequent interventions: Baby delivered approximately 0610. Epidural to be removed by nursing staff per protocol. Please see nursing documentation. Post-procedure Anesthesia time START: 00:48 Anesthesia time END: 06:10 Post-procedure Anesthesia Assessment: Yes CV function: HR/BP stable, Yes Resp function: RR/sat/airway adequate, Yes Post-op hydration adequate, Yes Pain control adequate, Yes Nausea & vomiting absent, Yes Temperature > 36 C, Yes Ment al status appropriate and Yes Anesthesia complications
--- NOTE | 2023-02-25 03:38 | PM.OBPNLAB ---
Date/Time Date Patient Seen: 02/25/23 Time Patient Seen: 03:38 Pain Control Pain control: epidural Comments: Resting comfortably and able to sleep with adequate epidural anesthesia. Open to pitocin augmentation. Partner remains supportive at her side. VS: BP 104/58mmhg, HR 77bpm, T 36.3C Temporal Pelvic Exam Dilation (cm): 3 Effacement (%): 90 station: -2 Comments: clear fluid and small bloody show Contractions Monitor mode: External Pitocin rate (mU/min): 0 Contraction frequency (min): 5 Contraction duration (min): 1 Contraction pattern: Regular Contraction intensity: Moderate Status status: Category l Heart Rate Baseline: 125 Monitor Accelerations: Present Monitor Decelerations: Absent Assessment and Plan Assessment: other Plan: begin patient augmentation Comments: Pitocin, per protocol. reassess in 4 hours or sooner, PRN.
[2023-02-25] MEDS: OXYTOCIN PREMIX 30 UNIT/500 ML PLAST..BAG IV (04:09)
--- NOTE | 2023-02-25 06:25 | P.PCNOB_ITS ---
Events: Labor Augmentation Labor & Delivery Delivery date: 02/25/23 Intrapartal Events: None Cervical ripening method: none Induction method: none Delivery augmentation: pitocin Delivery monitor: external FHT and external uterine Route of delivery: Episiotomy description: None L&D Laceration Description: Vaginal - 1st Degree Quantitative Blood Loss: 50 Anesthesia Type: Epidural Narrative: Patient labored well with continued leaking of clear fluid no concern for infection. Remained comfortable with an epidural and rapidly progressed to complete after pitocin augmentation (max dose 4mu/min) was initiated. CNM called to room by RN for C/C/+3. FHR was primarily Cat I throughout labor. Patient pushed well with coaching and encouragement in left tile and recumbent positions. NSVB of a vigorous baby boy in OK position. [place] was sommersaulted through a single loose nuchal cord and placed on maternal abdomen. The shoulders delivered easily, without additional maneuvers. Remaining 30 units of pitocin in 500mL LR was increased to 250mL/hr for active management of the third stage of labor. After cessation of pulsation, the cord was double clamped by CNM and cut by FOB. Cord blood sample was collected. Gentle cord traction and a single maternal push led to spontaneous, Schultze delivery of an apparently intact placenta, membranes and 3 vessel cord. Fundus immediately firm and bleeding scant. Inspection revealed a short 1st degree vaginal laceration that was hemostatic and well approximated with no indication for repair. QBL 50mL. Both mother and baby stable and skin to skin as I left the room. [place] Baby 1: gender: Male Presentation: vertex Position: Left Occiput Anterior Placenta delivery description: Spontaneous score (1 min): 8 score (5 min): 9 weight: 3.177 kg Plan for aftercare: Routine care
[2023-02-25] MEDS: KETOROLAC 30 MG/ML VIAL IV (09:07)
[2023-02-25] MEDS: levETIRAcetam 250 MG TABLET 750 MG PO ×2 (09:11→21:06)
[2023-02-25] MEDS: LANOLIN OINT 7 GM 1 APPLIC TOP (09:13)
[2023-02-25] MEDS: DERMOPLAST SPRAY 20% 60 ML 1 SPRAY TOP (09:15)
--- NOTE | 2023-02-25 17:51 | P.PNOB_ITS ---
Subjective - OB Subjective Patient comments: no complaints [place] baby status: doing well [place] feeding status: exclusively breast feeding (Baby is still sleepy) Narrative: Patient is about 12 hours doing well. She denies any concerns. Date Patient Seen: 02/25/23 Time Patient Seen: 17:52 Exam Vital Signs (past 8 hours): Blood pressure 120/75, pulse 75, temperature 98.8? Objective Labs 02/24/23 17:15 02/24/23 17:15 Labs: Laboratory Results - last 24 hr 02/24/23 02/24/23 02/24/23 16:46 17:15 17:15 WBC 13.4 H RBC 4.35 Hgb 13.4 Hct 39.3 MCV 90.3 MCH 30.8 MCHC 34.2 RDW 13.7 Plt Count 202 Neut % (Auto) 79.8 H Lymph % (Auto) 14.4 L [place] % (Auto) 4.4 Eos % (Auto) 0.8 L Baso % (Auto) 0.6 Neut # (Auto) 53052 H Lymph # (Auto) 1900 [place] # (Auto) 600 Eos # (Auto) 100 Baso # (Auto) 100 BUN 8 Creatinine 0.58 Estimated GFR > 60 BUN/Creatinine Ratio 13.8 Uric Acid 5.5 AST 44 H U Random Total Protein Urine Creatinine Protein/Creatinin Ratio Blood Type O Positive Antibody Screen Negative 02/24/23 17:40 WBC RBC Hgb Hct MCV MCH MCHC RDW Plt Count Neut % (Auto) Lymph % (Auto) [place] % (Auto) Eos % (Auto) Baso % (Auto) Neut # (Auto) Lymph # (Auto) [place] # (Auto) Eos # (Auto) Baso # (Auto) BUN Creatinine Estimated GFR BUN/Creatinine Ratio Uric Acid AST U Random Total Protein 15 H Urine Creatinine 88.9 Protein/Creatinin Ratio 0.16 Blood Type Antibody Screen Assessment & Plan Assessment and Plan (1) Vaginal delivery: Status: Acute Plan day: 0 plan OB: routine care Time Spent With Patient Time: Total time spent is greater than 50% in coordination of care (as documented) at patient's floor/unit and/or counseling patient: Time with patient: less than 15 minutes
--- NOTE | 2023-02-26 06:13 | P.DS_ITS ---
Discharge Providers Provider Date of admission: 02/24/23 16:04 Discharge Date: 02/26/23 Primary care physician: Doctor Nick MD Consults: 02/24/23 16:46 Consult to Anesthesiology Urgent Comment: Consulting Provider: Xiomara Humphrey Reason for consultation: Epidural 02/26/23 06:24 Consult to Brim [employer] Routine Comment: Discharge provider: Emmanuelle Martinez CNM, QU[facility] Summary Hospital Course Date Patient Seen: 02/26/23 Time Patient Seen: 06:14 Diagnoses: O70 Hospital Course: Events: Labor Augmentation Labor & Delivery Delivery date: 02/25/23 Intrapartal Events: None Cervical ripening method: none Induction method: none Delivery augmentation: pitocin Delivery monitor: external FHT and external uterine Route of delivery: Episiotomy description: None L&D Laceration Description: Vaginal - 1st Degree Quantitative Blood Loss: 50 Anesthesia Type: Epidural Carmelo was admitted r/to PROM and went into labor without augmentation. Patient labored well with continued leaking of clear fluid no concern for infection.? Got an epidural, which was effective and rapidly progressed? to complete after pitocin augmentation (max dose 4mu/min) was initiated.? CNM called to room by RN? for C/C/+3.? FHR was primarily Cat I throughout labor.? Patient pushed well with coaching and encouragement in left tile and recumbent positions.? NSVB of a vigorous baby boy in OK position.? Lake was sommersaulted through a single loose nuchal cord and placed on maternal abdomen.? The shoulders delivered easily, without additional maneuvers.? Remaining 30 units of pitocin in 500mL LR was increased to 250mL/hr for active management of the third stage of labor.? After cessation of pulsation, the cord was double clamped by CNM and cut by FOB.? Cord blood sample was collected.? Gentle cord traction and a single maternal push led to spontaneous, Schultze delivery of an apparently intact placenta, membranes and 3 vessel cord.? Fundus immediately firm and bleeding scant.? Inspection revealed a short 1st degree vaginal laceration that was hemostatic and well approximated with no indication for repair.? QBL 50mL.?Normal course. with nipple shield. ? ? ? gender: Male ? ? ? Presentation: vertex ? ? ? Position: Left Occiput Anterior ? ? ? Placenta delivery description: Spontaneous ? ? ? score (1 min): 8 ? ? ? score (5 min): 9 ? ? ? weight: 3.177 kg Peripartum Data Delivery Method: Natural Vaginal Laceration Description: Vaginal - 1st Degree Procedures: NSVB 1: Gender: Male Disposition of : home Discharge Diagnosis (1) Vaginal delivery: Status: Acute (2) Breast feeding status of mother: Status: Acute Status at Discharge Cognitive/behavioral status at discharge: oriented and calm Functional status at discharge: independent ambulation Overall status at discharge: patient is progressing back to baseline Time Spent with Patient Time attestation: Total time spent providing and/or coordinating discharge services: Time spent: Less than 30 minutes Specific discharge activities: discharge teaching Objective Labs 02/24/23 17:15 02/24/23 17:15 Exam Vital Signs (past 8 hours): BP 124/78 HR: 90 bpm RR: 16/min Temp: 98.2 F temporal Other: Fundus firm at U-1, midline. Lochia scant Perineum intact with minimal edema Discharge Plan Discharge Plan Patient Disposition: Home Discharge orders & Medications Prescriptions: Continued [id number] oil 400 mcg-35 mg -25 mg-5 mg tablet,chewable 1 tab PO DAILY folic acid 1 mg tablet 4 mg PO DAILY levetiracetam [Keppra] 500 mg tablet 750 mg PO BID Follow up/Referrals: Doctor Romero MD [Primary Care Provider] - Frank Stinson MD [Physician] - Diet/Activity/Treatments Diet: Diet as Tolerated and Regular Diet comment: Increase fiber, fluid to support bowel movements Activity: Low lindo x 2 weeks Cold/Heat Therapy: As needed Skin/Wound/Dressing Care Skin care: usual care Report to your healthcare provider any signs of infection, such as:: chills, fever, unusual drainage and unusual redness Visit Report/Discharge Packet Stand Alone Forms: Patient Portal/API Discharge Data Primary Care Provider: Doctor Nick
[2023-02-26 08:31] VITALS: BP 136/90; PULSE 111; RESP 16; TEMP 2.6; TEMP 36.6
[2023-02-26] MEDS: levETIRAcetam 250 MG TABLET 750 MG PO (08:45)
[2023-02-26] MEDS: FOLIC ACID 1 MG TABLET PO (08:45)
[2023-02-26 08:57] VITALS: BP 109/70; PULSE 73; RESP 18; TEMP 36.8
== END 2023-02-26 10:18 | disposition home or self-care (01) | DRG 806 ==
PROVIDERS: Nurse Practitioner Obstetrics & Gynecology; Admitting Provider Obstetrics & Gynecology; Referring Provider Obstetrics & Gynecology; Visit Provider Obstetrics & Gynecology
DX: O42.02 Full-term premature rupture of membranes, onset of labor within 24 hours of rupture (principal); O99.354 Diseases of the nervous system complicating childbirth; Z37.0 Single live birth; Z3A.39 39 weeks gestation of pregnancy
CPT/HCPCS: 36415; 59050; 82570; 84112; 84156; 84450; 84550; 85025; 86850; 86900; 86901; G0379; J1885; J2590